=== PATIENT | female | born 1950 | race Caucasian/White ===

== ENCOUNTER → 2016-12-27 | Outpatient (CLI) | payer MEDICARE | END | disposition home or self-care (01) | LOC: YCFC.O 09:49 | PROVIDERS: ATTEND Nurse Practitioner Family | DX: E11.9 Type 2 diabetes mellitus without complications (principal) ==

== ENCOUNTER → 2017-05-10 | Outpatient (CLI) | payer MEDICARE | END | disposition home or self-care (01) | LOC: YCFC.O 08:50 | PROVIDERS: ATTEND Nurse Practitioner Family | DX: E03.9 Hypothyroidism, unspecified (principal) ==

== ENCOUNTER → 2018-06-26 | Outpatient (CLI) | payer MEDICARE | LOC: LAB.O 12:05 | PROVIDERS: ATTEND Nurse Practitioner Family | DX: E78.2 Mixed hyperlipidemia (principal); E11.9 Type 2 diabetes mellitus without complications; E89.0 Postprocedural hypothyroidism; I10 Essential (primary) hypertension ==

== ENCOUNTER → 2018-07-03 | Outpatient (CLI) | payer MEDICARE ==
--- NOTE | 2018-07-04 09:42 | US ---
US THYROID CLINICAL STATEMENT: R79.89.. Prior thyroidectomy. Thyroid radiation. Medications long time. COMPARISON: None FINDINGS: No thyroid tissue seen in the thyroid bed bilaterally. No dominant solid mass or distinct cyst. No parenchymal edema or large calcifications. No overlying skin changes. Normal vascularity. IMPRESSION: 1. No thyroid tissue seen in the thyroid bed. No mass or cyst. No abnormal vascularity. Electronically signed by: Segnu Santos MD 07/04/2018 9:40 AM [facility]
== END ==
LOC: YCFC.O 11:02
PROVIDERS: ATTEND Nurse Practitioner Family
DX: R79.89 Other specified abnormal findings of blood chemistry (principal)

== ENCOUNTER → 2018-12-02 | Outpatient (CLI) | payer MEDICARE ==
--- NOTE | 2018-12-03 12:20 | RAD ---
EXAM DESCRIPTION: Knee,Left Complete CLINICAL HISTORY: KNEE PAIN COMPARISON: None. IMPRESSION: 3 views of the left knee show no acute fracture, focal bone destruction, or joint dislocation. Mild narrowing of the medial tibiofemoral compartment is seen suggesting mild osteoarthritic changes. Mild posterior superior osteophyte of the patella is also seen. Soft tissues are unremarkable. No joint effusion. Electronically signed by: Dre Higgins MD 12/03/2018 12:17 PM CDT
== END ==
LOC: YCFC.O 16:47
PROVIDERS: ATTEND Nurse Practitioner Family
DX: M25.862 Other specified joint disorders, left knee (principal); M25.762 Osteophyte, left knee

== ENCOUNTER → 2019-06-10 | Outpatient (CLI) | payer MEDICARE ==
--- NOTE | 2019-06-16 15:34 | MAM ---
EXAM DESCRIPTION: 3D Screening BILATERAL : Digital Mammography. CLINICAL HISTORY: 68 years Female SCREENING . No complaints. No complaints or prior study history of breast cancer. Remote family history of breast cancer. Menarche age unknown. Childbirth age 27. Postmenopausal age unknown. No HRT. Lifetime risk of developing breast cancer (Tyrer-Cuzick model)(%): 5.9. COMPARISON: Baseline study at this facility. No prior reports available. TECHNIQUE: Bilateral CC and MLO projection full-field images, digital tomosynthesis mammographic technique. Bilateral digital 2-D full-field MLO images. CAD not available for tomosynthesis or 2-D images. FINDINGS: The breast parenchymal density pattern is: Scattered areas of fibroglandular density. No skin thickening or nipple retraction. Bilateral solitary microcalcifications. No focal, stellate mass or density, focal asymmetry , and no suspicious microcalcifications bilaterally. IMPRESSION: Benign exam. BIRAD CATEGORY: 2 BENIGN FINDINGS. RECOMMENDATIONS: FOLLOW UP: Routine digital bilateral mammographic screening, one year interval from June 2018. Written communication explaining the IMPRESSION and follow-up, will be mailed to the patient and referring health care provider. According to the [employer], yearly mammograms are recommended starting at age 40 and continuing as long as a woman is in good health. Any breast change noted on a breast self-exam should be reported promptly to the patient's healthcare provider. Breast MRI is recommended for women with an approximately 20-25% or greater lifetime risk of breast cancer, including women with a strong family history of breast or ovarian cancer and women who have been treated for Hodgkin's disease. A negative mammographic report should not delay tissue diagnosis in patients with significant clinical history or physical findings. Extremely dense breast tissue limits the sensitivity of digital mammography. Electronically signed by: Segun Santos MD 06/16/2019 3:33 PM [facility]
== END ==
LOC: LAB.O 12:42
PROVIDERS: ATTEND Family Medicine
DX: Z12.31 Encounter for screening mammogram for malignant neoplasm of breast (principal); I10 Essential (primary) hypertension; E11.9 Type 2 diabetes mellitus without complications; E78.5 Hyperlipidemia, unspecified; E03.9 Hypothyroidism, unspecified; R00.8 Other abnormalities of heart beat; N39.0 Urinary tract infection, site not specified

== ENCOUNTER → 2019-11-04 | Outpatient (CLI) | payer MEDICARE | LOC: YCFC.O 12:15 | PROVIDERS: ATTEND Family Medicine | DX: I10 Essential (primary) hypertension (principal); E78.5 Hyperlipidemia, unspecified; E03.9 Hypothyroidism, unspecified; E11.9 Type 2 diabetes mellitus without complications ==

== ENCOUNTER → 2019-12-02 | Outpatient (CLI) | payer MEDICARE ==
--- NOTE | 2019-12-08 16:12 | CT ---
Procedure: CT LUNG SCREENING Exam Date: 12/02/2019. Ordering Provider: Alton Devine Clinical Indication: PERSONAL HISTORY OF NICOTINE DEPENDENCE . Smoking cessation x10 years. 60 pack years. This patient meets eligibility criteria for low-dose CT lung cancer screening. Comparison: Chest x-ray 2008. Technique: Using a multislice scanner, sequential helical axial imaging was obtained in the thorax, 2.5 mm thickness, 2.5 mm separation, from the level of the thoracic inlet through the lung bases without IV contrast. A low dose protocol was utilized for BMI less than 30: BMI: 25. CTDI: 1.76 mGy. 120. kVp. 45 mA. DLP 64 mGy-cm. 2D sagittal and coronal reconstructed images, 6.0 mm thickness, were obtained. This exam was performed according to our departmental dose optimization program which includes use of automated exposure control, adjustment of the mA and/or kV according to patient size and/or use of iterative reconstruction technique. Nodule measurements under 10 mm are given as mean value of 3 axes diameters. FINDINGS: Lungs and large airways: Minimal bilateral blebs in a centrilobular distribution in the upper lung tomlin. Scattered solitary calcifications. No abnormal nodules and no masses. No acute or focal infiltrates. Pleural parenchymal scarring inferior lingula. Pleura and space: Negative. Mediastinum and morenita: evaluation limited by low dose technique and lack of IV contrast. No enlarged lymph nodes. No dominant soft tissue masses. Heart and great vessels: Atherosclerotic calcifications coronary arteries and aortic arch and descending aorta and several brachiocephalic vessels. Chest wall, lower neck, axillae: Evaluation also limited by same factors as described above. Normal sized lymph nodes. Upper abdomen: Evaluation limited by low-dose technique. At least to gravity dependent radiodense stones in the gallbladder. No free air or free fluid. Abdominal aortic atherosclerotic calcifications. Osseous structures: Evaluation limited by low dose MIP technique. Mild thoracic levoscoliosis. Minimal shoulder arthrosis. IMPRESSION: Early emphysematous changes upper lung tomlin. Minimal pleural-parenchymal scarring. No abnormal nodules and no mass. No acute or focal infiltrate. [facility] Best Practice Recommendations: please see below for Lung RADS category and FOLLOW-UP.* *Lung RADS category Category 1 - No nodule or definitely benign nodules (probability of malignancy less than 1%). Follow-up: Continue annual screening with Low Dose Chest CT in 12 months. Electronically signed by: Segun Santos MD 12/08/2019 4:11 PM CDT
== END ==
LOC: CT 10:00
PROVIDERS: ATTEND Family Medicine
DX: Z87.891 Personal history of nicotine dependence (principal); J43.9 Emphysema, unspecified

== ENCOUNTER → 2020-03-02 | Outpatient (CLI) | payer MEDICARE ==
--- NOTE | 2020-03-03 08:48 | CT ---
EXAM DESCRIPTION: Lumbar Spine CLINICAL HISTORY: 69 years, Female, PAIN IN LOWER LIMB COMPARISON: None TECHNIQUE: CT of the lumbar spine was performed without IV contrast. This exam was performed according to our departmental dose-optimization program, which includes automated exposure control, adjustment of the mA and/or kV according to patient size and/or use of iterative reconstruction technique. FINDINGS: No lumbar vertebral body fracture or subluxation. The facet joints are anatomically aligned. The spinous and transverse processes are intact. Visualized portions of the sacrum are unremarkable. Degenerative changes in both sacroiliac joints. The spleen is only partially visualized but may be slightly prominent. Mural calcification in the abdominal aorta without aneurysm. Lobulated contour inferior pole left kidney, question 2.9 cm solid mass versus complex cyst. Partially visualized fluid and inflammation the right lower quadrant. T12-L1: Bilateral facet joint degeneration without disc space narrowing or stenosis. L1-2: Bilateral facet joint degeneration without disc space narrowing or stenosis. L2-3: Bilateral facet joint degeneration with ligament flavum thickening and mild concentric disc bulging resulting in mild central canal stenosis. L3-4: Bilateral facet joint degeneration and ligament flavum thickening with concentric disc bulging and vacuum disc phenomenon resulting in moderate to moderately advanced central canal and moderate bilateral neural foraminal stenosis. L4-5: Bilateral facet joint degeneration and ligament flavum thickening, concentric disc bulging and vacuum disc phenomenon resulting in moderately advanced central canal stenosis and advanced bilateral neural foraminal stenosis. L5-S1: Bilateral facet joint degeneration without disc bulging, question mild bilateral neural foraminal stenosis. IMPRESSION: Advanced degenerative disc and facet joint disease at L3-4 and L4-5 resulting in central canal and neural foraminal stenosis as above. Less advanced degenerative changes elsewhere in the lumbar spine. Small amount of low-density fluid in the right lower quadrant with inflammation or scarring at the same location only partially visualized on this exam. CT abdomen pelvis with IV contrast should be considered for further evaluation, appendicitis or other acute right lower quadrant inflammatory process is not excluded. Solid mass versus complex cyst inferior pole left kidney which can also be further evaluated with follow-up CT. Findings and recommendations regarding follow-up CT were reported by telephone to Dr. Devine by me at time of this report. Electronically signed by: Steven Harris MD 03/03/2020 8:47 AM CDT
== END ==
LOC: YCFC.O 13:37
PROVIDERS: ATTEND Family Medicine
DX: M48.061 Spinal stenosis, lumbar region without neurogenic claudication (principal); M47.896 Other spondylosis, lumbar region; M51.36 Other intervertebral disc degeneration, lumbar region; G62.9 Polyneuropathy, unspecified; M79.606 Pain in leg, unspecified; E11.9 Type 2 diabetes mellitus without complications; D69.6 Thrombocytopenia, unspecified; D64.9 Anemia, unspecified; N28.9 Disorder of kidney and ureter, unspecified

== ENCOUNTER → 2020-03-03 | Outpatient (CLI) | payer MEDICARE ==
--- NOTE | 2020-03-03 18:18 | CT ---
EXAM DESCRIPTION: Abdomen/Pelvis w/wo Contrast CLINICAL HISTORY: 69 years Female, RENAL MASS COMPARISON: CT of the lumbar spine dated 02 March 2020 TECHNIQUE: Transaxial images were obtained pre and post administration of intravenous contrast media. Sagittal and coronal reconstruction was performed.This exam was performed according to our departmental dose-optimization program, which includes automated exposure control, adjustment of the mA and/or kV according to patient size and/or use of iterative reconstruction technique. FINDINGS: The lung bases are clear. Ascites is observed in the upper abdomen. Hepatosplenomegaly is observed. No biliary ductal dilatation is observed. A gallstone is observed in the gallbladder. There is some fluid about the gallbladder which is presumed to be secondary to ascites. No adrenal masses are detected. The pancreas is normal in appearance. Imaging of the kidneys reveals spontaneously dense mass which enhances along the medial inferior border of the left kidney which measures 1.51 cm in diameter. No cyst is observed. No renal calcifications are detected. Calcific atherosclerotic changes observed in the abdominal aorta without evidence of aneurysmal dilatation. Diverticulosis of the colon is observed without evidence of diverticulitis. The uterus and adnexa are unremarkable. No inguinal region abnormality is seen. IMPRESSION: 1. Hepatosplenomegaly are observed. 2. Ascites is observed throughout the abdomen. 3. Cholelithiasis. 4. A 2.64 x 1.64 x 1.51 cm diameter mass is observed along the medial inferior border of the left kidney and it exhibits evidence of enhancement consistent with a renal cell neoplasm. 5. Uncomplicated diverticulosis of the colon Electronically signed by: Osvaldo Robles MD 03/03/2020 6:17 PM CDT
== END ==
LOC: US 10:06
PROVIDERS: ATTEND Family Medicine
DX: N28.89 Other specified disorders of kidney and ureter (principal); R16.2 Hepatomegaly with splenomegaly, not elsewhere classified; K80.20 Calculus of gallbladder without cholecystitis without obstruction; R18.8 Other ascites; K57.30 Diverticulosis of large intestine without perforation or abscess without bleeding; I73.9 Peripheral vascular disease, unspecified

== ENCOUNTER → 2020-03-04 | Outpatient (CLI) | payer MEDICARE ==
--- NOTE | 2020-03-09 09:56 | US ---
EXAM DESCRIPTION: Extremity,Lower Levon Arteries CLINICAL HISTORY: PERIPHERAL VASCULAR DISEASE COMPARISON: None. TECHNIQUE: 2-D grayscale and color arterial duplex Doppler evaluation of the bilateral lower extremities is performed. FINDINGS: Mild scattered calcified plaque throughout the arterial vasculature are seen. Normal biphasic to triphasic waveform flow seen from proximal to distal. No elevated velocities or arterial occlusion is seen. IMPRESSION: Mild calcific atherosclerotic disease of the bilateral lower extremities is seen with no ultrasound evidence of high-grade or flow limiting stenosis. Electronically signed by: Dre Higgins MD 03/09/2020 9:54 AM CDT
== END ==
LOC: US 11:30
PROVIDERS: ATTEND Family Medicine
DX: I70.203 Unspecified atherosclerosis of native arteries of extremities, bilateral legs (principal)

== ENCOUNTER → 2020-03-30 | Outpatient (CLI) | payer MEDICARE | LOC: LAB.O 12:47 | PROVIDERS: ATTEND Family Medicine | DX: M79.604 Pain in right leg (principal); I10 Essential (primary) hypertension ==

== ENCOUNTER → 2020-04-20 | Outpatient (CLI) | payer MEDICARE | LOC: YCFC.O 12:58 | PROVIDERS: ATTEND Family Medicine | DX: I10 Essential (primary) hypertension (principal); D64.9 Anemia, unspecified; R16.2 Hepatomegaly with splenomegaly, not elsewhere classified; Z86.19 Personal history of other infectious and parasitic diseases ==

== ENCOUNTER 2020-04-22 05:24 | Day surgery (SDC) | payer MEDICARE ==
[2020-04-22] MEDS ORDERED: LACTATED RINGERS 1,000 ML ONE (06:39)
[2020-04-22] MEDS ORDERED: PHENYLEPHRINE INJ 1ML 10 MG/ML VIAL ONE (07:00)
[2020-04-22] MEDS ORDERED: METOPROLOL TARTRATE INJ 5 MG/5 ML VIAL IV ONE (07:00)
[2020-04-22] MEDS ORDERED: DEXAMETHASONE INJ 10 MG/ML VIAL ONE (07:00)
[2020-04-22] MEDS ORDERED: LIDOCAINE 1% 10 ML VIAL INJ ONE (07:00)
[2020-04-22] MEDS ORDERED: PROPOFOL 200 MG/20 ML VIAL IV ONE (07:00)
[2020-04-22] MEDS ORDERED: SODIUM CHLORIDE 0.9% 50 ML VIAL ONE (07:00)
[2020-04-22] MEDS ORDERED: BUPIVACAINE 0.5% W/EPI 30 ML VIAL INJ ONE (09:38)
[2020-04-22] MEDS ORDERED: LACTATED RINGERS 1,000 ML IVS ONE ×2 (09:45)
[2020-04-22] MEDS ORDERED: ONDANSETRON ODT 8 MG TAB PO ONE (10:03)
[2020-04-22] MEDS ORDERED: ONDANSETRON ODT 8 MG TAB ONE (10:03)
[2020-04-22] MEDS ORDERED: SUGAMMADEX SODIUM 200 MG/2 ML VIAL IV ONE (10:12)
[2020-04-22] MEDS ORDERED: MIDAZOLAM INJ 2 MG/2 ML VIAL ONE (10:12)
[2020-04-22] MEDS ORDERED: FAMOTIDINE INJ 10 MG/ML VIAL IV ONE (10:13)
[2020-04-22] MEDS ORDERED: fentaNYL CITRATE INJ 50 MCG/ML 2 ML AMP ONE (10:13)
[2020-04-22] MEDS ORDERED: ROCURONIUM BROMIDE 10 MG/ML VIAL ONE (10:13)
[2020-04-22] MEDS ORDERED: ELECTROLYTE-A 1,000 ML IVS ONE (11:32)
[2020-04-22] MEDS: HYDROmorphone HCL INJ 2 MG/ML VIAL ONE ×2 (11:55→12:10)
[2020-04-22] MEDS ORDERED: ONDANSETRON INJ 4 MG/2 ML VIAL ONE (12:04)
[2020-04-22] MEDS ORDERED: HYDROmorphone HCL INJ 2 MG/ML VIAL IV ONE ×2 (12:25→12:40)
[2020-04-22] MEDS ORDERED: HYDROcodone 5MG/APAP 325MG 1 EA TAB ONE (13:02)
[2020-04-22] MEDS ORDERED: HYDROcodone 5MG/APAP 325MG 1 EA TAB PO ONE (13:04)
--- NOTE | 2020-04-22 13:27 | OP ---
DATE OF PROCEDURE: 04/22/20 PREOPERATIVE DIAGNOSIS: 1. Symptomatic cholelithiasis. 2. Some ascites. POSTOPERATIVE DIAGNOSIS: 1. Macro/micronodular cirrhosis. 2. Cholelithiasis. PROCEDURE: 1. Laparoscopic cholecystectomy. 2. Wedge liver biopsy. SURGEON: Melvin Daly MD. ANESTHESIA: General and local. FINDINGS: The liver showed cirrhosis throughout. I did not see a lot of evidence of portal hypertension, however, the gallbladder was moderately distended. The anatomy was clearly visualized. COMPLICATIONS: None. ESTIMATED BLOOD LOSS: Minimal. SPECIMEN: Gallbladder and wedge liver biopsy. PLAN: Discharge. INDICATION: As stated. PROCEDURE: General anesthesia was induced. The patient was prepped and draped in sterile fashion. Marcaine 0.5% with epinephrine was used at all incision sites. While maintaining upward traction, a xiao was made near the base of the umbilicus. Veress needle was introduced. There was free flow of fluid into the peritoneal cavity which was insufflated to an appropriate level with CO2 gas. The 5 mm trocar was placed followed by the camera. There was no evidence of bleeding or bowel injury. The patient was positioned and subxiphoid and lateral ports were placed. We immediately identified the cirrhotic liver, but again, no diffuse portal hypertension and recent hepatitis serologies were negative. The patient is not known to have a significant alcohol history. We planned a wedge biopsy after the gallbladder removal. The gallbladder fundus was grasped and retracted superiorly and laterally. The infundibulum was grasped. The infundibular structures were dissected free. The duct and artery were clearly visualized through the triangle of Calot. The duct was triply ligated as was the artery. This was just a small tiny branch. The actual cystic was seen just posterior to this and isolated and triply ligated. We were then able to dissect the gallbladder off the fossa without incident and it was removed in the EndoCatch bag. The fossa remained hemostatic throughout. Some bile had leaked, which was irrigated and aspirated. All aspirate was clear. The clips were examined and they were intact. There was no bleeding or bile leakage. At this point, we sharply took off an anterior wedge of the liver, approximately 3.5 by 2.5 cm, and controlled the bleeding with high level cautery without difficulty. Under low pressure, the entire area remained hemostatic. The subxiphoid fascia was then closed with 0 Vicryl using the suture passer. It was airtight and non- bleeding. The remaining trocars were removed. There was no bleeding from the trocar sites. The wounds were irrigated and closed with Monocryl. Dressings were applied. The patient was awakened and taken to Recovery in stable condition to be discharged. We will followup in the office with biopsy results. #[id number] cc: [facility] Devine MD [facility]
[2020-04-22 14:22] VITALS: BP 132/85; TEMP 98.5; O2SAT 97
== END 2020-04-22 14:15 | disposition home or self-care (01) ==
LOC: AMB 05:24
PROVIDERS: ATTEND Surgery
DX: K80.10 Calculus of gallbladder with chronic cholecystitis without obstruction (principal); K74.60 Unspecified cirrhosis of liver; R18.8 Other ascites; I48.91 Unspecified atrial fibrillation; E11.9 Type 2 diabetes mellitus without complications; I10 Essential (primary) hypertension; Z95.5 Presence of coronary angioplasty implant and graft; Z79.899 Other long term (current) drug therapy; E78.00 Pure hypercholesterolemia, unspecified; E03.9 Hypothyroidism, unspecified; Z86.73 Personal history of transient ischemic attack (TIA), and cerebral infarction without residual deficits; Z79.84 Long term (current) use of oral hypoglycemic drugs
CPT/HCPCS: 00790; 36416; 47001; 47562; 82948; 88304; 88307; 88313; A4216; J1100; J1170; J2250; J2405; J3010; J3490; J7120

== ENCOUNTER → 2020-06-23 | Outpatient (CLI) | payer MEDICARE | LOC: YCFC.O 16:15 | PROVIDERS: ATTEND Family Medicine | DX: N18.30 Chronic kidney disease, stage 3 unspecified (principal); N28.9 Disorder of kidney and ureter, unspecified; D50.9 Iron deficiency anemia, unspecified ==

== ENCOUNTER 2020-06-27 22:06 | Emergency (ER) | payer MEDICARE ==
--- NOTE | 2020-06-27 22:57 | ED.PDOC ---
History of Present Illness - General Chief Complaint: GI Problem Stated Complaint: bloody emesis at home Time Seen by Provider: 06/27/20 22:19 Information Source: patient, family - DAUGHTER, EMS Exam Limitations: no limitations - History of Present Illness Initial Comments: PATIENT HAD 300 CC OF DARK BLOODY EMESIS AT HOME, C/W WITH PERNELL BLOOD, CONSISTING OF CLOTS. 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 SHE WAS HOSPITALIZED 2 WEEKS AGO AT [facility] IN [place] AND UNDERWENT BANDING OF VARICES AND POLYPECTOMY, SHE REQUIRED BLOOD TRANSFUSION AT THAT TIME. PATIENT HAS A HISTORY OF HEPATIC ENCEPHALOPATHY AND IS ON LACTULOSE. SHE HAS A REMOTE HISTORY OF VIRAL HEPATITIS, SHE DOES NOT KNOW WHICH ONE. SHE WAS NOT AWARE OF THE CIRRHOSIS UNTIL HER RECENT HOSPITALIZATION SHE ALSO HAS A HISTORY OF ATRIAL FIBRILATION AND IS CURRENTLY TAKING ELIQUIS. Quality: severe Timing/Duration: 1-3 hours Improving Factors: cold therapy Worsening Factors: nothing Associated Symptoms: denies symptoms, fatigue, weakness, other Review of Systems - Review of Systems Constitutional: States: see HPI, malaise, weakness EENTM: States: no symptoms reported Respiratory: States: no symptoms reported Cardiology: States: no symptoms reported Gastrointestinal/Abdominal: States: see HPI Genitourinary: States: no symptoms reported Skin: States: no symptoms reported Neurological: States: see HPI, other - SLOWED MENTATION AND SLURED SPEECH PER DAUGHTER Past Medical History (General) - Patient Medical History Hx Seizures: No Hx Stroke: Yes Hx Dementia: No Hx Asthma: No Hx of COPD: No Hx Cardiac Disorders: No Hx Congestive Heart Failure: No Hx Pacemaker: No Hx Hypertension: Yes Hx Thyroid Disease: No Hx Diabetes: Yes Hx Gastroesophageal Reflux: No Hx Renal Disease: No Hx Cancer: No Hx of HIV: No Hx Hepatitis C: Yes Hx MRSA: No Surgical History: cholecystectomy - Vaccination History Hx Tetanus, Diphtheria Vaccination: No Hx Influenza Vaccination: No Hx Pneumococcal Vaccination: No - Social History Hx Alcohol Use: Yes - quit Family Medical History - Family History Mother Family History: Unknown Physical Exam - Physical Exam General Appearance: Alert, Anxious, Frail, Lethargic Eyes, Ears, Nose, Throat Exam: PERRL/EOMI, normal ENT inspection Neck: non-tender, full range of motion, supple Respiratory: chest non-tender, lungs clear, normal breath sounds, no respiratory distress, no accessory muscle use Cardiovascular/Chest: normal peripheral pulses, regular rate, rhythm, no edema, no gallop, no JVD, no murmur Peripheral Pulses: No deficit, 2+ Gastrointestinal/Abdominal: normal bowel sounds, non tender, soft, no organomegaly, no pulsatile mass Back Exam: normal inspection, no CVA tenderness, no vertebral tenderness Extremity: normal range of motion, non-tender, normal inspection 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 (PT'S GI), STATES WILL ACCEPT, BUT NEEDS TO GO TO ICU, PROGRAM SUPERVISOR "SHE HAS A GI BLEED", PATIENT REMAINS STABLE WITH NORMAL VITALS, ONLY GIVING A SMALL FLUID BOLUS TO HELP REDUCE RENAL TOXICITY OF GI BLOOD LOAD, DO NOT WITH ANY DILUTIONAL EFFECT TO INCREASE BLEEDING TENDENCY. AT THIS POINT STILL NOT SHOWING HEMODYNAMIC CHANGES SO WILL NOT TRANSFUSE. IF TRANSFUSION NEEDED WOULD PROCEED WITH BALANCED TRANSFUSION, PLATELETS, FFP AND PRBC. DR MARQUEZ WISHES US TO PROCEED WITH OCTREOTIDE AND PROTONIX HAS BEEN ORDERED WELL. WAITING FOR CALL BACK AND ACCEPTANCE FROM PROGRAM SUPERVISOR. Departure - Departure Clinical Impression: Upper GI bleeding, Hepatic encephalopathy, Anemia due to gastrointestinal blood loss Esophageal varices Qualifiers: Esophageal varices type: secondary Esophageal varices bleeding: with bleeding Qualified Code(s): I85.11 - Secondary esophageal varices with bleeding Time of Disposition: 23:01 Disposition: Transfer to Hospital Condition: Good Departure Forms: ED Discharge - Pt. Copy, Patient Portal Self Enrollment Referrals: Alton Devine MD [Primary Care Provider] - 1-2 Weeks Home Medications: Ambulatory Orders Amiodarone HCl [Amiodarone Hydrochloride] 200 mg PO DAILY 04/20/20 Furosemide 40 mg PO DAILY 04/20/20 Glipizide 10 mg PO DAILY 04/20/20 Levothyroxine Sodium [Euthyrox] 150 mcg PO DAILY 04/20/20 Meloxicam 7.5 mg PO DAILY 04/20/20 Metformin HCl [Metformin Hydrochloride E] 1,000 mg PO BID 04/20/20 Rivaroxaban [Xarelto] 20 mg PO DAILY 11/17/20 Ropinirole Hydrochloride [Ropinirole HCl] 1 mg PO BEDTIME 04/20/20 Tramadol HCl 50 mg PO Q6HR PRN 04/20/20
[2020-06-27] MEDS ORDERED: SODIUM CHLORIDE 0.9% 500ML 500 ML IVS ONE (23:02)
[2020-06-27] MEDS ORDERED: SODIUM CHLORIDE 0.9% 1000ML 1,000 ML IVS PRN (23:03)
[2020-06-27] MEDS: SODIUM CHLORIDE 0.9% 1000ML 1,000 ML IVS ONE ×2 (23:08→23:26)
[2020-06-27] MEDS ORDERED: LACTULOSE SYRUP 20 GM/30 ML UD PO ONE (23:17)
[2020-06-27] MEDS ORDERED: OCTREOTIDE ACETATE 50 MCG in SODIUM CHLORIDE 0.9% 100ML 100 ML IVPB STA (23:32)
[2020-06-27] MEDS ORDERED: PANTOPRAZOLE INJECTION 80 MG in SODIUM CHLORIDE 0.9% 100ML 80 ML IVPB ONE (23:36)
[2020-06-27] MEDS ORDERED: OCTREOTIDE ACETATE 500 MCG in SODIUM CHLORIDE 0.9% 100ML 100 ML IVPB SCH (23:45)
[2020-06-28] MEDS ORDERED: OCTREOTIDE ACETATE 100 MCG/ML VIAL ONE ×2 (00:16→00:18)
[2020-06-28] MEDS ORDERED: SODIUM CHL 0.9% 100ML MINI-BAG 100 ML IVPB ONE (00:22)
[2020-06-28] MEDS ORDERED: traMADol HCL 50 MG TAB ONE (00:34)
[2020-06-28] MEDS ORDERED: GABAPENTIN 300 MG CAP ONE (00:34)
[2020-06-28] MEDS ORDERED: GABAPENTIN 100 MG CAP PO ONE (00:39)
[2020-06-28] MEDS ORDERED: traMADol HCL 50 MG TAB PO ONE (00:39)
[2020-06-28 01:52] VITALS: O2SAT 95
[2020-06-28 02:01] VITALS: BP 102/50; TEMP 98.4
== END 2020-06-28 02:25 | disposition short-term general hospital (02) ==
LOC: ER 22:06
DX: I85.11 Secondary esophageal varices with bleeding (principal); K92.0 Hematemesis; K72.90 Hepatic failure, unspecified without coma; D50.0 Iron deficiency anemia secondary to blood loss (chronic); K74.60 Unspecified cirrhosis of liver; I48.91 Unspecified atrial fibrillation; I10 Essential (primary) hypertension; E11.9 Type 2 diabetes mellitus without complications; Z20.822 Contact with and (suspected) exposure to COVID-19; Z86.19 Personal history of other infectious and parasitic diseases; Z90.49 Acquired absence of other specified parts of digestive tract; Z86.73 Personal history of transient ischemic attack (TIA), and cerebral infarction without residual deficits; Z79.01 Long term (current) use of anticoagulants; Z79.899 Other long term (current) drug therapy; Z98.890 Other specified postprocedural states; Z79.84 Long term (current) use of oral hypoglycemic drugs
CPT/HCPCS: 80053; 82140; 82948; 85025; 85610; 85730; 86850; 86900; 86901; 87635; 93005; J2354; J7030; J7040; J7050